=== PATIENT | male | born 1985 | race Caucasian/White ===

== ENCOUNTER 2017-07-26 17:14 | Emergency (ER) | payer SELFPAY ==
[~2017-07-26] VITALS: Ht 165.1 cm; Wt 80.0 kg
[~2017-07-26 17:14] MED LIST: Z.0.NO CURRENT MEDS
[2017-07-26 17:51] VITALS: BP 134/82; PULSE 69; RESP 17; TEMP 97.9; O2SAT 100
[2017-07-26 20:10] VITALS: BP 114/72; PULSE 71; RESP 18; O2SAT 98
[2017-07-26] MEDS ORDERED: ASPIRIN 81 MG CHEW TAB CHEW ONE (20:30)
[2017-07-26] MEDS ORDERED: NITROGLYCERIN 0.4 MG SL 25 TABS/BTL SL ONE (20:30)
--- NOTE | 2017-07-26 20:56 | RADRPT ---
EXAM DATE: 07/26/2017 8:53 PM EDT AGE/SEX: 32 years / Male INDICATIONS: Chest pain for 5 days. CLINICAL DATA: This is the patient's initial encounter. Patient reports that signs and symptoms have been present for 4 - 6 days and indicates a pain score of 6/10. MEDICAL/SURGICAL HISTORY: None. None. COMPARISON: No prior exams available for comparison. FINDINGS: A single AP view of the chest demonstrates the lungs to be symmetrically aerated without evidence of mass, infiltrate or effusion. The cardiomediastinal contours are unremarkable. Osseous structures a re intact. CONCLUSION: No acute cardiopulmonary disease Electronically signed by: Parish Henry MD 07/26/2017 8:55 PM EDT
[2017-07-26 21:25] LABS: AUTOMATED NEUTROPHIL # 4.7 TH/MM3 (1.8-7.7); BASOPHIL % 0.2 % (0.0-2.0); EOSINOPHIL # 0.1 TH/MM3 (0-0.4); EOSINOPHIL % 0.6 % (0.0-4.0); HEMOGLOBIN 15.9 GM/DL (13.0-17.0); LYMPHOCYTE # 3.6 TH/MM3 (1.0-4.8); MEAN CELL VOLUME 85.6 FL (80.0-100.0); MEAN CORPUSCULAR HEMOGLOBIN 29.6 PG (27.0-34.0); MEAN CORPUSCULAR HGB CONC 34.6 % (32.0-36.0); MEAN PLATELET VOLUME 8.6 FL (7.0-11.0); MONO % 7.7 % (0.0-8.0); MONOCYTE # 0.7 TH/MM3 (0-0.9); NEUT % 51.5 % (16.0-70.0); PLATELET COUNT 235 TH/MM3 (150-450); RED BLOOD COUNT 5.37 MIL/MM3 (4.50-5.90); RED CELL DISTRIBUTION WIDTH 13.2 % (11.6-17.2)
--- NOTE | 2017-07-26 21:27 | PD ---
HPI Chief Complaint: Chest Pain Time Seen by Provider: 20:20 Travel History International Travel<30 days: No Contact w/Intl Traveler<30days: No Traveled to known affect area: No History of Present Illness HPI Patient is a 32-year-old male presents with chest pain. Chest pain is described as a stabbing in the center of his chest. He has had pain for 5 weeks however it has gotten significantly worse in the last 24 hours. He has no history of cardiac disease, no family history, and no risk factors. [facility] Past Medical History Medical History: Denies Significant Hx Tetanus Vaccination: Never Vaccinated Influenza Vaccination: No Past Surgical History Surgical History: No Previous Surgery Social History Alcohol Use: Yes ([facility]) Tobacco Use: No Substance Use: No Allergies-Medications (Allergen,Severity, Reaction): Coded Allergies: No Known Allergies (Verified , 06/17/10) Reported Meds & Prescriptions Reported Meds & Active Scripts Active Review of Systems Except as stated in HPI: all other systems reviewed are Neg HENT: No: Headaches, Vertigo, Lightheadedness Cardiovascular: Positive: Chest Pain or Discomfort Respiratory: No: Cough, Shortness of Breath Gastrointestinal: No: Nausea, Vomiting, Diarrhea Musculoskeletal: No: Myalgias, Arthralgias Skin: No Rash, No Itching, No Dryness Neurologic: No: Weakness, Dizziness, Syncope Physical Exam Narrative GENERAL: Well-appearing 32-year-old male in no distress SKIN: Focused skin assessment warm/dry. HEAD: Atraumatic. Normocephalic. EYES: Pupils equal and round. No scleral icterus. No injection or drainage. ENT: No nasal bleeding or discharge. Mucous membranes pink and moist. NECK: Trachea midline. No JVD. CARDIOVASCULAR: Regular rate and rhythm. No murmur appreciated. RESPIRATORY: No accessory muscle use. Clear to auscultation. Breath sounds equal bilaterally. GASTROINTESTINAL: Abdomen soft, non-tender, nondistended. Hepatic and splenic margins not palpable. MUSCULOSKELETAL: No obvious deformities. No clubbing. No cyanosis. No edema. Data Data Last Documented VS Vital Signs Date Time Temp Pulse Resp B/P (MAP) Pulse Ox O2 Delivery O2 Flow Rate FiO2 07/26/17 20:10 71 18 114/72 (86) 98 Room Air 07/26/17 17:51 97.9 Orders Orders Complete Blood Count With Diff (07/26/17 20:27) Comprehensive Metabolic Panel (07/26/17 20:27) Troponin I (07/26/17 20:27) Creatine Kinase (Cpk) (07/26/17 20:27) Chest, Single Ap (07/26/17 ) Nitroglycerin Sl (Nitrostat Sl) (07/26/17 20:30) Aspirin Chew (Aspirin Chew) (07/26/17 20:30) Electrocardiogram (07/26/17 20:25) Troponin I (07/26/17 22:48) Labs Laboratory Tests Test 07/26/17 20:40 07/26/17 23:20 White Blood Count 9.0 TH/MM3 Red Blood Count 5.37 MIL/MM3 Hemoglobin 15.9 GM/DL Hematocrit 46.0 % Mean Corpuscular Volume 85.6 FL Mean Corpuscular Hemoglobin 29.6 PG Mean Corpuscular Hemoglobin Concent 34.6 % Red Cell Distribution Width 13.2 % Platelet Count 235 TH/MM3 Mean Platelet Volume 8.6 FL Neutrophils (%) (Auto) 51.5 % Lymphocytes (%) (Auto) 40.0 % Monocytes (%) (Auto) 7.7 % Eosinophils (%) (Auto) 0.6 % Basophils (%) (Auto) 0.2 % Neutrophils # (Auto) 4.7 TH/MM3 Lymphocytes # (Auto) 3.6 TH/MM3 Monocytes # (Auto) 0.7 TH/MM3 Eosinophils # (Auto) 0.1 TH/MM3 Basophils # (Auto) 0.0 TH/MM3 CBC Comment DIFF FINAL Differential Comment Blood Urea Nitrogen 12 MG/DL Creatinine 0.94 MG/DL Random Glucose 76 MG/DL Total Protein 8.3 GM/DL Albumin 4.2 GM/DL Calcium Level 9.3 MG/DL Alkaline Phosphatase 78 U/L Aspartate Amino Transf (AST/SGOT) 31 U/L Alanine Aminotransferase (ALT/SGPT) 60 U/L Total Bilirubin 0.5 MG/DL Sodium Level 138 MEQ/L Potassium Level 3.7 MEQ/L Chloride Level 102 MEQ/L Carbon Dioxide Level 25.6 MEQ/L Anion Gap 10 MEQ/L Estimat Glomerular Filtration Rate 94 ML/MIN Total Creatine Kinase 207 U/L Troponin I LESS THAN 0.02 NG/ML LESS THAN 0.02 NG/ML MDM Medical Decision Making Medical Screen Exam Complete: Yes Emergency Medical Condition: Yes Differential Diagnosis atypical chest pain Narrative Course Patient was seen and evaluated in the emergency department after 5 weeks of pain with acute worsening over the last 24 hours his troponin was negative. A repeat troponin was done and was also negative. Diagnosis Primary Impression: Chest pain Qualified Codes: R07.9 - Chest pain, unspecified Disposition: 01 DISCHARGE HOME Condition: Good Antonia Salas DO Jul 26, 2017 21:27
[2017-07-26 21:42] LABS: ALBUMIN 4.2 GM/DL (3.4-5.0); ALT (GPT) 60 U/L (12-78); AST (GOT) 31 U/L (15-37); BICARBONATE 25.6 MEQ/L (21.0-32.0); BLOOD UREA NITROGEN 12 MG/DL (7-18); CALCIUM 9.3 MG/DL (8.5-10.1); CHLORIDE 102 MEQ/L (98-107); CREATININE 0.94 MG/DL (0.60-1.30); GLOMERULAR FILTRATION RATE 94 ML/MIN (>89); GLUCOSE,RANDOM 76 MG/DL (74-106); SODIUM (NA) 138 MEQ/L (136-145)
[2017-07-26 21:47] LABS: ALKALINE PHOSPHATASE 78 U/L (45-117); TOTAL BILIRUBIN ADULT 0.5 MG/DL (0.2-1.0); TOTAL PROTEIN 8.3 GM/DL (6.4-8.2); TROPONIN I LESS THAN 0.02 NG/ML (0.02-0.05)
--- NOTE | 2017-07-27 07:07 | EKG ---
Date Performed: 07/26/2017 Time Performed: 20:25:54 PTAGE: 32 years EKG: Sinus rhythm WITH SINUS ARRHYTHMIA INDETERMINATE AXIS ABNORMAL ECG NO PREVIOUS TRACING DOCTOR: Didier Olguin Interpretating Date/Time 07/27/2017 07:06:17
== END 2017-07-27 00:49 | disposition home or self-care (01) ==
LOC: NEPC 17:14
DX: R07.9 Chest pain, unspecified (principal); R94.31 Abnormal electrocardiogram [ECG] [EKG]
CPT/HCPCS: 71045; 80053; 82550; 84484; 85025; 93005; 99285

== ENCOUNTER 2017-08-02 12:11 | Emergency (ER) | payer SELFPAY ==
[~2017-08-02] VITALS: Ht 167.6 cm; Wt 79.0 kg
[2017-08-02 12:25] VITALS: BP 125/71; PULSE 90; RESP 17; TEMP 98.1; O2SAT 99
--- NOTE | 2017-08-02 14:49 | PD ---
HPI Chief Complaint: Musculoskeletal Complaint Time Seen by Provider: 14:38 Travel History International Travel<30 days: No Contact w/Intl Traveler<30days: No Traveled to known affect area: No History of Present Illness HPI 32 YO M presents to the ED for evaluation of right arm pain x 1 week. The patient was evaluated here on 07/26 and had an IV inserted at the site of the pain. He states that since he was discharged the pain has been present. He states today it is 10/10. Throbbing, radiates into the wrist and shoulder. Patient endorses edema in the hand. He states that he feels weak in his civil celebrant strength. He states that the pain is worsened by range of motion. He denies fevers, chills, chest pain, palpitations, shortness of breath. The patient treated at home with ibuprofen, last dose last night. Patient is primarily Kinyarwanda-speaking. All communication was through [employer] services. [facility] Social History Alcohol Use: Yes ([facility]) Tobacco Use: No Substance Use: No Allergies-Medications (Allergen,Severity, Reaction): Coded Allergies: No Known Allergies (Verified Adverse Reaction, Unknown, 08/02/17) Reported Meds & Prescriptions Reported Meds & Active Scripts Active Ibuprofen 800 Mg Tab 800 Mg PO Q8H PRN Review of Systems Except as stated in HPI: all other systems reviewed are Neg Physical Exam Narrative GENERAL: Well-nourished, well-developed male in no acute distress. SKIN: Focused skin assessment warm/dry. Ecchymosis in the right AC space that continues into the posterior upper arm. No induration noted. No warmth noted. HEAD: Normocephalic. EYES: No scleral icterus. No injection or drainage. NECK: Supple, trachea midline. No JVD or lymphadenopathy. CARDIOVASCULAR: Regular rate and rhythm without murmurs, gallops, or rubs. RESPIRATORY: Breath sounds equal bilaterally. No accessory muscle use. GASTROINTESTINAL: Abdomen soft, non-tender, nondistended. MUSCULOSKELETAL: No cyanosis, or edema. FOCUSED RIGHT UPPER EXTREMITY EXAM: 2+ radial pulse. Strong civil celebrant strength. Patient has strong finger to thumb opposition on each digit. He is able to flex and extend pronate and supinate the wrist and elbow. He is able to extend and abduct the shoulder against resistance. Compartments of the arm are soft. Neurovascularly intact distally. BACK: Nontender without obvious deformity. No CVA tenderness. Data Data Last Documented VS Vital Signs Date Time Temp Pulse Resp B/P (MAP) Pulse Ox O2 Delivery O2 Flow Rate FiO2 08/02/17 12:25 98.1 90 17 125/71 (89) 99 Orders Orders Us Arm Venous Doppler (08/02/17 14:38) Ibuprofen (Motrin) (08/02/17 15:30) Ed Discharge Order (08/02/17 16:27) MDM Medical Decision Making Medical Screen Exam Complete: Yes Emergency Medical Condition: Yes Differential Diagnosis Superficial thrombophlebitis versus DVT versus ecchymosis versus compartment syndrome versus other Narrative Course 32 YO M presents to the ED for evaluation of right arm pain x 1 week. The patient was evaluated here on 07/26 and had an IV inserted at the site of the pain. He states that since he was discharged the pain has been present. Denies fever, chills, shortness of breath, chest pain. Vitals reviewed. Physical exam reveals ecchymosis and tenderness in the antecubital space that extends to the posterior aspect of the bicep. Compartments are soft. Patient was administered 800 mg ibuprofen. Ultrasound reveals no evidence of DVT. This is superficial thrombophlebitis. Patient's prescribed short course of anti -inflammatories, instructed to use warm, moist compresses, return to normal, gentle activity as tolerated, follow with the primary care provider. He indicated understanding of instructions. The patient is stable and discharged home. Patient is primarily Kinyarwanda-speaking all communication was Via [employer] interpretation services. Diagnosis Primary Impression: Superficial thrombophlebitis of arm Qualified Codes: I80.8 - Phlebitis and thrombophlebitis of other sites Referrals: [facility] Primary Care Physician Patient Instructions: General Instructions, Superficial Thrombophlebitis (ED) Additional Instructions: Rest, hydrate. Take ibuprofen as prescribed. Warm, moist compresses held over the anterior aspect of the right arm will help to reduce pain and swelling. Apply these compresses 4-5 times a day for the next week. Return to normal, gentle activity as tolerated. Follow-up with the primary care provider. Return to the ED for any urgent or emergent medical condition. Med/Other Pt SpecificInfo: Prescription(s) given Scripts Ibuprofen (Ibuprofen) 800 Mg Tab 800 MG PO Q8H Y for Pain/Inflammation, #15 TAB 0 Refills Prov: Anthony Douglas MD 08/02/17 Disposition: 01 DISCHARGE HOME Condition: Stable Vianca Lopez Aug 02, 2017 14:49
[2017-08-02] MEDS ORDERED: IBUPROFEN 800 MG TAB PO ONE (15:30)
--- NOTE | 2017-08-02 15:40 | RADRPT ---
EXAM DATE: 08/02/2017 3:22 PM EDT AGE/SEX: 32 years / Male INDICATIONS: Right arm pain. CLINICAL DATA: This is the patient's initial encounter. Patient reports that signs and symptoms have been present for 1 week and indicates a pain score of 4/10. MEDICAL/SURGICAL HISTORY: . Right arm pain. Alcohol use. None. COMPARISON: No prior exams available for comparison. FINDINGS: The vessels are compressible and augmentation response is documented. No filling defects a re seen. The flow is phasic with respiration. Other: None. CONCLUSION: No right upper extremity venous thrombosis. Electronically signed by: Michoacano Shepherd MD 08/02/2017 3:39 PM EDT
[2017-08-02] MEDS ORDERED: IBUP1TAB7 PO (15:51)
== END 2017-08-02 16:46 | disposition home or self-care (01) ==
LOC: NEPD 12:11
DX: I80.8 Phlebitis and thrombophlebitis of other sites (principal)
CPT/HCPCS: 93971; 99284